=== PATIENT | female | born 2000 | race Caucasian/White ===

== ENCOUNTER 2018-03-22 11:53 | Outpatient (CLI) | payer OTHER, MEDICAID ==
[2018-03-22 13:17] LABS: ADD MAN DIFF? NO
[2018-03-22 13:19] LABS: WHITE BLOOD COUNT 9.1 10^3/ul (4.8-10.8)
[2018-03-22 13:19] LABS: BASOPHILS % 0.1 % (0.0-2.0); EOSINOPHILS % 0.3 % (0.0-7.0); HEMATOCRIT 36.2 % (37.0-47.0); HEMOGLOBIN 12.3 g/dl (12.0-16.0); LYMPHOCYTES # 1.3 10^3/ul (0.8-2.9); LYMPHOCYTES % 13.8 % (18.0-55.0); MEAN CORPUSCULAR HEMOGLOBIN 32.5 pg (29.0-33.0); MEAN CORPUSCULAR VOLUME 95.5 fl (72.0-104.0); MEAN PLATELET VOLUME 10.5 fl (7.4-10.4); MONOCYTE # 0.7 10^3/ul (0.3-0.9); MONOCYTES % 7.8 % (0.0-13.0); NEUTROPHIL # 7.1 10^3/ul (1.6-7.5); NEUTROPHILS % 77.5 % (30.0-74.0); PLATELET COUNT 161 10^3/UL (140-415); RED BLOOD COUNT 3.79 10^6/ul (4.20-5.40); RED CELL DISTRIBUTION WIDTH 13.6 % (11.5-14.5)
[2018-03-22 13:23] LABS: ADD UMIC YES; UR ASCORBIC ACID 40 mg/dL (NEGATIVE); UR BACTERIA FEW /HPF (NONE SEEN); UR BILIRUBIN (Dip) NEGATIVE (NEGATIVE); UR BLOOD (Dip) NEGATIVE (NEGATIVE); UR CLARITY SLIGHTLY CLOUDY (CLEAR); UR COLOR YELLOW (YELLOW); UR GLUCOSE (Dip) NEGATIVE (NEGATIVE); UR KETONES (Dip) TRACE mg/dL (NEGATIVE); UR LEUKOCYTE ESTERASE (Dip) 2+ Leu/ul (NEGATIVE); UR MUCUS FEW /HPF (NONE SEEN); UR NITRITE (Dip) NEGATIVE (NEGATIVE); UR RBC 2 /HPF (0-5); UR SPECIFIC GRAVITY (Dip) 1.015 (1.003-1.030); UR SQUAMOUS EPITHELIAL CELL FEW /HPF (FEW); UR TOTAL PROTEIN (Dip) NEGATIVE (NEGATIVE); UR UROBILINOGEN (Dip) NEGATIVE (NEGATIVE); UR WBC 12 /HPF (0-5)
[2018-03-22 13:35] LABS: INR 0.87; PROTIME 11.9 Sec (11.9-14.9); PT RATIO 0.9
[2018-03-22 13:36] LABS: PARTIAL THROMBOPLASTIN TIME 29.1 Sec (25.0-35.0)
[2018-03-22 13:39] LABS: ALANINE AMINOTRANSFERASE 16 IU/L (13-69); ALBUMIN 3.5 g/dl (3.3-4.9); ALBUMIN/GLOBULIN RATIO 1.16; ALKALINE PHOSPHATASE 101 IU/L (42-121); ANION GAP 10 (8-16); ASPARTATE AMINO TRANSFERASE 16 IU/L (15-46); BILIRUBIN,INDIRECT 0.6 mg/dl (0-1.1); BILIRUBIN,TOTAL 0.6 mg/dl (0.2-1.3); BLOOD UREA NITROGEN 5 mg/dl (7-20); CALCIUM 9.4 mg/dl (8.4-10.2); CARBON DIOXIDE 25 mmol/L (21-31); CHLORIDE 108 mmol/L (97-110); CREATININE 0.58 mg/dl (0.44-1.00); GLUCOSE 92 mg/dl (70-220); POTASSIUM 4.1 mmol/L (3.5-5.1); SODIUM 139 mmol/L (135-144); TOTAL PROTEIN 6.5 g/dl (6.1-8.1); URIC ACID 3.7 mg/dl (3.1-7.9)
== END 2018-03-22 15:06 | disposition home or self-care (01) ==
LOC: OBT 11:53 → L-D 11:55 → OBT 15:06
DX: O26.893 Other specified pregnancy related conditions, third trimester (principal); R51 Headache; Z3A.34 34 weeks gestation of pregnancy
CPT/HCPCS: 36415; 76818; 80053; 81001; 84560; 85025; 85610; 85730; 87086

== ENCOUNTER 2018-05-01 22:12 | Inpatient (IN) | payer OTHER ==
[2018-05-02] MEDS ORDERED: METHYLERGONOVINE 0.2 MG INJ IM (03:30)
[2018-05-02] MEDS ORDERED: OXYTOCIN 30 UNITS/LR 500 ML IV ×2 (03:30)
[2018-05-02] MEDS ORDERED: BUTORPHANOL 2 MG INJ IV (03:30)
[2018-05-02] MEDS ORDERED: CARBOPROST 250 MCG INJ IM (03:30)
[2018-05-02] MEDS ORDERED: IBUPROFEN 600 MG TAB PO (03:30)
[2018-05-02] MEDS ORDERED: LIDOCAINE 1% (MPF) 30 ML INJ INJ (03:30)
[2018-05-02] MEDS ORDERED: MISOPROSTOL 200 MCG TAB PR (03:30)
[2018-05-02] MEDS: LACTATED RINGER'S 1,000 ML IV* ×3 (04:52→21:07)
[2018-05-02 06:06] LABS: ADD MAN DIFF? NO
[2018-05-02 06:08] LABS: BASOPHILS % 0.1 % (0.0-2.0); EOSINOPHILS % 0.2 % (0.0-7.0); HEMATOCRIT 36.9 % (37.0-47.0); HEMOGLOBIN 12.8 g/dl (12.0-16.0); LYMPHOCYTES # 1.2 10^3/ul (0.8-2.9); LYMPHOCYTES % 9.6 % (18.0-55.0); MEAN CORPUSCULAR HEMOGLOBIN 33.1 pg (29.0-33.0); MEAN CORPUSCULAR HGB CONC 34.7 g/dl (32.0-37.0); MEAN CORPUSCULAR VOLUME 95.3 fl (72.0-104.0); MEAN PLATELET VOLUME 11.8 fl (7.4-10.4); MONOCYTE # 0.6 10^3/ul (0.3-0.9); MONOCYTES % 5.3 % (0.0-13.0); NEUTROPHIL # 10.3 10^3/ul (1.6-7.5); NEUTROPHILS % 84.4 % (30.0-74.0); PLATELET COUNT 165 10^3/UL (140-415); RED BLOOD COUNT 3.87 10^6/ul (4.20-5.40); RED CELL DISTRIBUTION WIDTH 13.6 % (11.5-14.5)
[2018-05-02 06:08] LABS: WHITE BLOOD COUNT 12.2 10^3/ul (4.8-10.8)
[2018-05-02 06:28] LABS: INR 0.87; PROTIME 11.9 Sec (11.9-14.9); PT RATIO 0.9
[2018-05-02 06:29] LABS: PARTIAL THROMBOPLASTIN TIME 28.6 Sec (25.0-35.0)
[2018-05-02 07:16] LABS: ALANINE AMINOTRANSFERASE 12 IU/L (13-69); ALKALINE PHOSPHATASE 163 IU/L (42-121); ANION GAP 11 (8-16); ASPARTATE AMINO TRANSFERASE 22 IU/L (15-46); BILIRUBIN,TOTAL 0.6 mg/dl (0.2-1.3); BLOOD UREA NITROGEN 6 mg/dl (7-20); CALCIUM 9.3 mg/dl (8.4-10.2); CARBON DIOXIDE 21 mmol/L (21-31); CHLORIDE 109 mmol/L (97-110); GLUCOSE 82 mg/dl (70-220); POTASSIUM 4.1 mmol/L (3.5-5.1); SODIUM 137 mmol/L (135-144); URIC ACID 4.6 mg/dl (3.1-7.9)
[2018-05-02 07:17] LABS: ALBUMIN 3.5 g/dl (3.3-4.9); ALBUMIN/GLOBULIN RATIO 1.09; BILIRUBIN,INDIRECT 0.6 mg/dl (0-1.1); TOTAL PROTEIN 6.7 g/dl (6.1-8.1)
[2018-05-02 07:18] LABS: HEPATITIS B SURFACE ANTIGEN NEGATIVE (NEGATIVE)
[2018-05-02 15:39] LABS: RAPID PLASMA REAGIN NONREACTIVE (NR)
[2018-05-03] MEDS: LACTATED RINGER'S 1,000 ML IV* ×4 (00:39→20:43)
[2018-05-03] MEDS: LACTATED RINGER'S 1,000 ML IV ×2 (05:22→22:10)
[2018-05-03] MEDS ORDERED: FENTAnyl 2MCG/ML-ROPIV 0.2% 100 ML ×2 (06:09→15:42)
[2018-05-03] MEDS ORDERED: OXYTOCIN 30 UNITS/LR 500 ML BAG IV (07:20)
[2018-05-03] MEDS ORDERED: LIDOCAINE 1.5%/EPI MPF (SDV) 30 ML VIAL (07:20)
[2018-05-03] MEDS: OXYTOCIN 30 UNITS/LR 500 ML IV (11:54)
[2018-05-03] MEDS ORDERED: NALOXONE (0.4 MG/ML) INJ IV (16:30)
[2018-05-03] MEDS ORDERED: DIPHENHYDRAMINE 50 MG INJ IV (16:30)
[2018-05-03] MEDS ORDERED: ONDANSETRON 4 MG INJ IV (16:30)
[2018-05-03] MEDS: FENTAnyl 2MCG/ML-ROPIV 0.2% 100 ML BAG EPI ×3 (16:44→20:54)
[2018-05-03] MEDS ORDERED: MINERAL OIL LIGHT 10 ML VIAL TOP (17:00)
[2018-05-03] MEDS ORDERED: AMPICILLIN 2 GM/NS (PMX) 100 ML (18:40)
[2018-05-03] MEDS: ACETAMINOPHEN 325 MG TAB PO ×2 (19:07→22:05)
[2018-05-03] MEDS: GENTAMICIN 120 MG/NS (PMX) 100 ML IVPB (19:42)
[2018-05-03] MEDS: AMPICILLIN 2 GM/NS (PMX) 100 ML IVPB ×2 (20:10→23:00)
[2018-05-03] MEDS ORDERED: ACETAMINOPHEN 325 MG TAB PO (22:00)
[2018-05-03] MEDS ORDERED: CLINDAMYCIN 900 MG/D5W (PMX) 50 ML IVPB (22:24)
[2018-05-03] MEDS ORDERED: OXYTOCIN 30 UNITS/LR 500 ML IV ×2 (22:30)
[2018-05-03] MEDS ORDERED: CARBOPROST 250 MCG INJ IM (22:30)
[2018-05-03] MEDS ORDERED: MISOPROSTOL 200 MCG TAB PR (22:30)
[2018-05-03] MEDS ORDERED: METHYLERGONOVINE 0.2 MG INJ IM (22:30)
[2018-05-03] MEDS: CEFAZOLIN 2 GM/50 ML (PMX) 50 ML IV (23:00)
[2018-05-03] MEDS: CLINDAMYCIN 900 MG INJ IV (23:00)
[2018-05-04] MEDS: OXYTOCIN 30 UNITS/LR 500 ML IV (00:08)
[2018-05-04] MEDS: CLINDAMYCIN 900 MG/D5W (PMX) 50 ML IV (00:11)
[2018-05-04] MEDS ORDERED: NALOXONE (0.4 MG/ML) INJ IV (00:30)
[2018-05-04] MEDS ORDERED: ONDANSETRON 4 MG INJ IV (00:30)
[2018-05-04] MEDS ORDERED: HYDROmorphONE 0.5 MG/0.5 ML SYG IV ×2 (00:30)
[2018-05-04] MEDS ORDERED: DIPHENHYDRAMINE 50 MG INJ IV (00:30)
[2018-05-04] MEDS ORDERED: KETOROLAC 30 MG INJ IV (00:30)
[2018-05-04] MEDS ORDERED: ZOLPIDEM 5 MG TAB PO (00:30)
[2018-05-04] MEDS: CIPROFLOXACIN 400MG/D5W 200 ML IVPB (01:03)
[2018-05-04] MEDS ORDERED: DEXAMETHASONE 4 MG/ML 1 ML INJ (01:22)
[2018-05-04] MEDS ORDERED: MIDAZOLAM 1 MG/ML 2 ML INJ (01:22)
[2018-05-04] MEDS ORDERED: morphine SULFATE/PF (10 MG/10 ML) INJ (01:22)
[2018-05-04] MEDS ORDERED: FENTAnyl 50 MCG/ML VIAL (01:22)
[2018-05-04] MEDS ORDERED: KETOROLAC 30 MG INJ (01:22)
[2018-05-04] MEDS ORDERED: OXYTOCIN 30 UNITS/LR 500 ML IV (02:30)
[2018-05-04] MEDS ORDERED: MISOPROSTOL 200 MCG TAB PR (02:30)
[2018-05-04] MEDS ORDERED: LANOLIN 7 GM TUBE TOP (02:30)
[2018-05-04] MEDS ORDERED: HYDROCODONE/APAP (5/325) TAB PO (02:30)
[2018-05-04] MEDS ORDERED: METHYLERGONOVINE 0.2 MG INJ IM (02:30)
[2018-05-04] MEDS ORDERED: CARBOPROST 250 MCG INJ IM (02:30)
[2018-05-04] MEDS ORDERED: NA PHOSPHATE/BIPHOS 133 ML ENEMA PR (02:30)
[2018-05-04] MEDS ORDERED: GENTAMICIN 80 MG/NS (PMX) 50 ML IVPB (03:00)
[2018-05-04] MEDS: GENTAMICIN 80 MG/NS (PMX) 50 ML IVPB ×3 (03:12→20:05)
[2018-05-04] MEDS: LACTATED RINGER'S 1,000 ML IV ×3 (05:19→18:24)
[2018-05-04] MEDS: AMPICILLIN 2 GM/NS (PMX) 100 ML IVPB ×3 (05:19→17:10)
[2018-05-04] MEDS: CLINDAMYCIN 900 MG/D5W (PMX) 50 ML IVPB ×3 (06:23→18:32)
[2018-05-04] MEDS: SENNA/DOCUSATE NA (8.6MG/50MG) TAB PO ×2 (08:50→20:58)
[2018-05-04 12:28] LABS: ADD MAN DIFF? NO
[2018-05-04 12:30] LABS: WHITE BLOOD COUNT 16.2 10^3/ul (4.8-10.8)
[2018-05-04 12:30] LABS: BASOPHILS % 0.2 % (0.0-2.0); HEMATOCRIT 30.7 % (37.0-47.0); HEMOGLOBIN 10.5 g/dl (12.0-16.0); LYMPHOCYTES # 0.8 10^3/ul (0.8-2.9); LYMPHOCYTES % 4.6 % (18.0-55.0); MEAN CORPUSCULAR HEMOGLOBIN 32.4 pg (29.0-33.0); MEAN CORPUSCULAR HGB CONC 34.2 g/dl (32.0-37.0); MEAN CORPUSCULAR VOLUME 94.8 fl (72.0-104.0); MONOCYTE # 0.8 10^3/ul (0.3-0.9); MONOCYTES % 4.9 % (0.0-13.0); NEUTROPHIL # 14.5 10^3/ul (1.6-7.5); NEUTROPHILS % 89.8 % (30.0-74.0); PLATELET COUNT 154 10^3/UL (140-415); RED BLOOD COUNT 3.24 10^6/ul (4.20-5.40); RED CELL DISTRIBUTION WIDTH 13.7 % (11.5-14.5)
[2018-05-04] MEDS: BISACODYL 10 MG SUPP PR (13:28)
[2018-05-04] MEDS: OXYCODONE/ACETAMINOPHEN (5/325) TAB PO (23:29)
[2018-05-05] MEDS: AMPICILLIN 2 GM/NS (PMX) 100 ML IVPB ×5 (00:48→23:59)
[2018-05-05] MEDS: IBUPROFEN 800 MG TAB PO ×4 (01:00→21:33)
[2018-05-05] MEDS: CLINDAMYCIN 900 MG/D5W (PMX) 50 ML IVPB ×4 (01:57→19:49)
[2018-05-05] MEDS: LACTATED RINGER'S 1,000 ML IV ×3 (02:24→21:52)
[2018-05-05] MEDS: GENTAMICIN 80 MG/NS (PMX) 50 ML IVPB ×3 (02:29→21:03)
[2018-05-05] MEDS: OXYCODONE/ACETAMINOPHEN (5/325) TAB PO (06:15)
[2018-05-05] MEDS: SENNA/DOCUSATE NA (8.6MG/50MG) TAB PO ×2 (09:00→21:33)
[2018-05-05 09:06] LABS: ADD MAN DIFF? NO
[2018-05-05 09:12] LABS: BASOPHILS % 0.2 % (0.0-2.0); EOSINOPHILS # 0.1 10^3/ul (0.0-0.5); EOSINOPHILS % 0.5 % (0.0-7.0); HEMATOCRIT 29.6 % (37.0-47.0); HEMOGLOBIN 9.9 g/dl (12.0-16.0); LYMPHOCYTES # 1.1 10^3/ul (0.8-2.9); LYMPHOCYTES % 8.3 % (18.0-55.0); MEAN CORPUSCULAR HEMOGLOBIN 32.9 pg (29.0-33.0); MEAN CORPUSCULAR HGB CONC 33.4 g/dl (32.0-37.0); MEAN CORPUSCULAR VOLUME 98.3 fl (72.0-104.0); MEAN PLATELET VOLUME 11.1 fl (7.4-10.4); MONOCYTE # 0.7 10^3/ul (0.3-0.9); MONOCYTES % 5.5 % (0.0-13.0); NEUTROPHIL # 10.9 10^3/ul (1.6-7.5); PLATELET COUNT 146 10^3/UL (140-415); RED BLOOD COUNT 3.01 10^6/ul (4.20-5.40); RED CELL DISTRIBUTION WIDTH 14.5 % (11.5-14.5)
[2018-05-05 09:12] LABS: WHITE BLOOD COUNT 12.9 10^3/ul (4.8-10.8)
[2018-05-06] MEDS: CLINDAMYCIN 900 MG/D5W (PMX) 50 ML IVPB ×2 (01:16→06:43)
[2018-05-06] MEDS: LACTATED RINGER'S 1,000 ML IV ×2 (02:24→07:52)
[2018-05-06] MEDS: GENTAMICIN 80 MG/NS (PMX) 50 ML IVPB (05:01)
[2018-05-06] MEDS: OXYCODONE/ACETAMINOPHEN (5/325) TAB PO (05:07)
[2018-05-06] MEDS: AMPICILLIN 2 GM/NS (PMX) 100 ML IVPB (05:38)
[2018-05-06] MEDS: CIPROFLOXACIN 500 MG TAB PO (05:40)
[2018-05-06] MEDS: IBUPROFEN 800 MG TAB PO (06:00)
[2018-05-06 07:15] LABS: ADD MAN DIFF? NO
[2018-05-06 07:18] LABS: BASOPHILS % 0.1 % (0.0-2.0); EOSINOPHILS # 0.1 10^3/ul (0.0-0.5); EOSINOPHILS % 1.1 % (0.0-7.0); HEMATOCRIT 26.4 % (37.0-47.0); HEMOGLOBIN 8.9 g/dl (12.0-16.0); LYMPHOCYTES # 1.4 10^3/ul (0.8-2.9); LYMPHOCYTES % 16.3 % (18.0-55.0); MEAN CORPUSCULAR HEMOGLOBIN 33.2 pg (29.0-33.0); MEAN CORPUSCULAR HGB CONC 33.7 g/dl (32.0-37.0); MEAN CORPUSCULAR VOLUME 98.5 fl (72.0-104.0); MEAN PLATELET VOLUME 10.8 fl (7.4-10.4); MONOCYTE # 0.5 10^3/ul (0.3-0.9); MONOCYTES % 6.1 % (0.0-13.0); NEUTROPHIL # 6.3 10^3/ul (1.6-7.5); NEUTROPHILS % 75.8 % (30.0-74.0); PLATELET COUNT 151 10^3/UL (140-415); RED BLOOD COUNT 2.68 10^6/ul (4.20-5.40); RED CELL DISTRIBUTION WIDTH 14.6 % (11.5-14.5)
[2018-05-06 07:18] LABS: WHITE BLOOD COUNT 8.3 10^3/ul (4.8-10.8)
[2018-05-06] MEDS: MEASLES,MUMPS,RUBELLA VACCINE INJ SC* (07:51)
[2018-05-06] MEDS: DIPHTH/TET/ACEL PERTUSS (ADULT) 0.5 ML VIAL IM* (09:01)
[2018-05-06] MEDS: SENNA/DOCUSATE NA (8.6MG/50MG) TAB PO (09:02)
== END 2018-05-06 10:25 | disposition home or self-care (01) | DRG 765 ==
LOC: OBT 22:12 → PP1 05-04 02:25 → L-D 22:12
PROC: 10D00Z1 Extraction of Products of Conception, Low, Open Approach (ICD-10-PCS; principal; 2018-05-03 22:30)
PROC: 3E033VJ Introduction of Other Hormone into Peripheral Vein, Percutaneous Approach (ICD-10-PCS; 2018-05-03 22:30)
DX: O69.89X0 Labor and delivery complicated by other cord complications, not applicable or unspecified (principal); O41.1030 Infection of amniotic sac and membranes, unspecified, third trimester, not applicable or unspecified; Z3A.39 39 weeks gestation of pregnancy; Z37.0 Single live birth
CPT/HCPCS: 62319; 76815; 80053; 84560; 85025; 85610; 85730; 86592; 86850; 86900; 86901; 87040; 87086; 87340; 88307; 99464